=== PATIENT | male | born 1940 | race Caucasian/White ===

== ENCOUNTER → 2021-01-29 | Outpatient (CLI) | payer OTHER ==
--- NOTE | 2021-01-31 21:39 | PE ---
EXAMINATION TYPE: PET CT fusion skull to thigh DATE OF EXAM: 01/29/2021 COMPARISON: NONE at this institution HISTORY: Solitary pulmonary nodule. Abnormal outside CT. 1.8 x 1.1 cm right apical lung nodule TECHNIQUE: Following the intravenous administration of 11.67 mCi of F-18 FDG, whole body images are performed from the skull base to the midthigh. Images are reviewed on the computer in the coronal, a xial, and sagittal planes. Reconstructed rotating images are created on independent workstation and reviewed on the computer. A localization and attenuation correction CT is performed in conjunction with the PET scan. Glucose level equals 99 SCAN: Initial Scan FINDINGS: SKULL BASE AND NECK: No suspicious hypermetabolic uptake. CHEST, MEDIASTINUM, AND HILAR REGION: Corresponding to outside report there is posterior lateral righ t upper lung 1.8 x 1.1 cm oval nodule axial image 73, this is ametabolic. Additional smaller peripher al nodules in the medial right upper lung axial image 74 show no suspicious hypermetabolic uptake. Ba ckground mild to moderate emphysematous change with peripheral fibrosis greater in the upper lobes. N o suspicious hypermetabolic uptake. ABDOMEN AND PELVIS: No suspicious hypermetabolic uptake. No adrenal masses. OSSEOUS STRUCTURES: No suspicious hypermetabolic uptake. OTHER CT: Underlying scoliosis in the lumbar spine. Moderate to severe calcified plaque bilateral carotid bulb level. Severe three-vessel coronary artery calcification. Enlarged prostate consistent with BPH. Moderate to severe wall thickening in the blad paco presumed related to outlet obstruction from BPH. IMPRESSION: No suspicious hypermetabolic uptake to suggest malignancy in the right upper lung pulmona ry nodule.
== END | disposition home or self-care (01) ==
LOC: RADPETMAIN 12:24
PROVIDERS: ATTEND Physician Assistant
DX: R91.1 Solitary pulmonary nodule (principal)
CPT/HCPCS: 78815; A9552

== ENCOUNTER → 2022-08-02 | Outpatient (CLI) | payer OTHER ==
--- NOTE | 2022-08-02 13:31 | CT ---
EXAMINATION TYPE: CT angio neck DATE OF EXAM: 08/02/2022 HISTORY: left carotid stenosis COMPARISON: Carotid ultrasound. 25/12/2022 CT DLP: 556.7 mGycm. Automated Exposure Control for Dose Reduction was Utilized. TECHNIQUE: CTA scan of the head and neck is performed without and with IV Contrast, patient injected with 65 mL of Isovue 370, axial images are obtained, coronal and sagittal reformatted images are rev iewed. 3D reconstructed images are created on an independent workstation and reviewed. FINDINGS: Carotid/Vascular Structures: Mild to moderate mixed Peripheral plaque in the aortic arch is seen. The re is fibrotic vessel origin from the aortic arch with direct origin of the right brachiocephalic art sun and right common carotid artery and left common carotid artery and left vertebral artery and left subclavian artery. There is significant stenosis due to noncalcified plaque in the right brachioceph alic artery seen best image 48 series 9 with diameter narrowed to 1.7 mm. Some irregularity and narro wing along the remainder of the right brachiocephalic artery which measures up to 9.4 mm axial image 70 just distal to the stenosis. Findings correlate with significant stenosis on coronal image 14 seri es 13. Left vertebral artery has [id number] mixed plaque at its origin causing stenosis appro aching near 50%. Left subclavian artery shows moderate peripheral noncalcified plaque without signifi cant stenosis. There is also severe eccentric noncalcified plaque at proximal to mid clavicular level causing stenosis over 50% coronal image 16 measured around 66%. Bilateral common carotid arteries show mild to moderate noncalcified plaque at origin of the left com mon carotid artery. No significant stenosis along the common carotid arteries bilaterally. There is m oderate to severe mixed plaque in right carotid bulb extending into the proximal internal and externa l carotid arteries without significant stenosis on the right. Similar findings are noted on the left without significant stenosis. Patent external carotid arteries with significant stenosis at origin of the left external carotid artery. Remainder of the internal carotid arteries show mild calcified amber que distally. The right vertebral artery originates from the right brachiocephalic artery with small caliber and po or flow along its entire course. Left vertebral artery is dominant and patent to the basilar junction . No significant stenosis. Other: Mild to moderate emphysematous change with moderate bilateral pleural/parenchymal scarring. Sl ightly more prominent nodularity on the right is seen coronal image 54. This is however stable from P ET CT January 29, 2021. Nodular scarring is suspected. Reversal of normal cervical curvature with moderate to severe narrowing C4-C5 and C5-C6 levels. Moder ate disc space narrowing C6-C7 level is seen. Grade 1 anterolisthesis C2 on C3 and C3 on C4. IMPRESSION: 1. Moderate to severe bilateral carotid bulb plaque without hemodynamically significant stenosis in e ither internal carotid artery. Incidental note made of significant stenosis at origin of the left ext ernal carotid artery is confirmed. 2. Left subclavian and right brachiocephalic artery significant stenosis with most prominent finding in the right brachiocephalic artery. Direct origin of the right common carotid artery from the arch i s noted. The right vertebral artery has poor flow and is nondominant. Correlate for right upper extre mity radiculopathy type symptoms. NASCET criteria was used in interpretation of this exam?
== END | disposition home or self-care (01) ==
LOC: RADCTMAIN 11:20
PROVIDERS: ATTEND Surgery
DX: I65.23 Occlusion and stenosis of bilateral carotid arteries (principal)
CPT/HCPCS: 82565; 84520; 70498; Q9967

== ENCOUNTER 2022-08-25 07:17 | Inpatient (IN) | payer OTHER ==
[~2022-08-25 07:17] MED LIST: ALPRAZolam 0.25 MG TAB PO PRN; ALPRAZolam 0.5 MG TAB PO PRN; ASPIRIN 81 MG PO PRN; CLOPIDOGREL 75 MG TAB PO PRN; NITROGLYCERIN SL TABS 0.4 MG TAB SUBLINGUAL PRN; ceFAZolin 2 GM in SODIUM CHLORIDE 0.9% 500 ML 500 ML IRRIGATION PRN
[2022-08-25] MEDS ORDERED: SODIUM CHLORIDE 0.9% 1,000 ML IV ONE (07:30)
[2022-08-25 07:56] LABS: Basophils # (A) 0.1 k/uL (0-0.2); Basophils % (A) 1 %; Eosinophils # (A) 0.2 k/uL (0-0.7); Eosinophils % (A) 2 %; HCT 37.3 % (39.0-53.0); HGB 12.3 gm/dL (13.0-17.5); Lymphocytes # (A) 2.6 k/uL (1.0-4.8); Lymphocytes % (A) 29 %; MCH 32.5 pg (25.0-35.0); Macrocytosis Slight; Monocytes # (A) 0.4 k/uL (0-1.0); Monocytes % (A) 4 %; Neutrophils # (A) 5.5 k/uL (1.3-7.7); Neutrophils % (A) 62 %; Poikilocytosis Moderate; RBC 3.78 m/uL (4.30-5.90); RDW 15.1 % (11.5-15.5); WBC 8.9 k/uL (3.8-10.6)
[2022-08-25 08:05] LABS: Calcium 9.2 mg/dL (8.4-10.2); Potassium 4.6 mmol/L (3.5-5.1)
[2022-08-25 08:23] LABS: MCV 98.7 fL (80.0-100.0); Platelet Count 333 k/uL (150-450)
[2022-08-25] MEDS ORDERED: LIDOCAINE 1% INJ 10MG/ML (20 ML MDV) ONE (08:53)
[2022-08-25] MEDS ORDERED: RX INFO: IV CONTRAST WAS GIVEN 1 EACH MISC MISCELLANE PRN (09:00)
[2022-08-25] MEDS ORDERED: GLYCOPYRROLATE 0.2 MG/ML 2 ML VIAL ONE (09:02)
[2022-08-25] MEDS ORDERED: HEPARIN SODIUM,PORCINE 10,000 UNIT/ML 1 ML VIAL ONE (09:02)
[2022-08-25] MEDS ORDERED: fentaNYL (PF) 50 MCG/ML 2 ML AMP ONE (09:02)
[2022-08-25] MEDS ORDERED: PROTAMINE SULFATE 10 MG/ML 5 ML VIAL IV ONE (09:02)
[2022-08-25] MEDS ORDERED: LIDOCAINE 1% INJ 10MG/ML (30 ML VIAL-PF) SQ ONE (09:53)
[2022-08-25] MEDS ORDERED: GELATIN SPONGE,ABSORB (LARGE) 1 EACH SPONGE TOPICAL ONE (10:33)
[2022-08-25] MEDS ORDERED: THROMBIN (BOVINE) 5,000 UNIT VIAL TOPICAL ONE (10:34)
[2022-08-25] MEDS ORDERED: IOPAMIDOL-370 100ML BTL INJ ONE (10:40)
[2022-08-25] MEDS ORDERED: IV FLUID CONTINUATION 1,000 ML IV ONE ×2 (11:01)
--- NOTE | 2022-08-25 11:33 | P.OP ---
Date of Procedure: 08/25/22 Description of Procedure: Preoperative diagnosis: Symptomatic left internal carotid artery stenosis Postoperative diagnosis: Same Procedure: LeftTranscarotid artery revascularization with stenting. Right common femoral vein central venous catheter placement under ultrasound guidance Surgeon: Suzanna Parrish DO Fire Observer: Magda Anesthesia: Conscious sedation Complications: None Condition: Stable Flow reversal time: 7 minutes Lesion length: 1centimeter Indication for procedure: Patient is an 82-year-old male with symptomatic left internal carotid artery stenosis who had word finding difficulties and was found to have high-grade stenosis. Risks and benefits of going forward with intervention were discussed. He seemingly understood and wished to proceed. He has been taking his Plavix and aspirin as well as statin for the past few weeks. Operative narrative: After written and informed consent was obtained the patient all risks benefits and competitions were described the patient was brought to the [facility] and laid in a supine position. The area of the neck and groins were prepped and draped in usual sterile fashion after appropriate anesthetic was performed per the anesthesiologist. A timeout was performed in normal fashion and antibiotics were administered prior to incision. Utilizing ultrasound the left common carotid artery was located and a transverse incision was created overlying this area after proper anesthetization. Dissection was carried between the sternocleidomastoid musculature down to the carotid sheath. The sheath was then incised and the common carotid artery was located and dissected free in a circumferential manner and controlled with umbilical tape. Once controlled, attention was placed down to the common femoral vein and utilizing ultrasound the vein was cannulated and the 8-[place] sheath was placed in normal fashion. Attention was then placed back to the carotid artery and the patient was administered heparin and followed with ACTs and redosed as needed for ACT above 250. A pursestring suture was then placed at the common carotid artery with 5-0 Prolene and utilizing a micropuncture needle the common carotid artery was accessed and wire was placed followed by a 4-[place] sheath. Carotid angiogram was then obtained demonstrating significant stenosis in the internal carotid artery. Stiff wire was then placed followed by the 8 [place] sheath. Flow reversal was then established with the enroute GATHERING MACHINE FEEDER system after patient's blood pressure was increased to above 160, heart rate above 60 and ACT above 250. 014 wire was then placed across the lesion followed by a 6 x 30 mm Rangel balloon and balloon angioplasty was performed followed by an 9 x 30 mm [place] stent. Postdilatation was not performed and final angiogram was obtained demonstrating complete resolution of the stenosis. All guidewires and catheters were removed and the sheath was removed and the arteriotomy was secured with the previously placed pursestring suture. Hemostasis was assured with Gelfoam and thrombin. The area was irrigated and closed. The platysma was closed with 3-0 Vicryl. The skin was closed with running 4-0 Monocryl in subcuticular fashionThe femoral sheath was also removed and pressure was held for hemostasis. The patient all procedure well and was moving all extremities and following commands. The patient was then sent to PACU for recovery.
[2022-08-25] MEDS ORDERED: ATROPINE SULFATE 0.1 MG/ML 10ML SYRINGE IV PRN (11:34)
[2022-08-25] MEDS ORDERED: MAG HYDROX/AL HYDROX/SIMETH 30 ML CUP PO PRN (11:34)
[2022-08-25] MEDS: SODIUM CHLORIDE 0.9% 1,000 ML in EMPTY BAG 1 BAG IV ONE ×2 (11:45→16:15)
[2022-08-25] MEDS: PHENYLEPHRINE 40 MG in SODIUM CHLORIDE 0.9% 250 ML IV SCH ×2 (12:47→13:15)
[2022-08-25] MEDS ORDERED: HYDROmorphone 0.5 MG/0.5 ML SYRINGE IVP ONE (13:34)
--- NOTE | 2022-08-25 16:00 | P.CONS ---
History of Present Illness - Reason for Consult Consult date: 08/25/22 - History of Present Illness Patient is a 82-year-old male with history of CVA, recent episode of aphasia and anomia, bilateral carotid atherosclerotic disease, dyslipidemia, hypertension presenting for left trans-carotid artery revascularization with stenting. [facility] has been consulted for medical management. He denies any chest pain, shortness of breath, abdominal pain, nausea, vomiting, diarrhea, constipation, or urinary complaints. He does complain about loss of appetite for the last 2 years since his . He claims that most of his meals are precooked. He currently lives alone at home. Patient currently is afebrile, pulse 63, respiratory rate 14, blood pressure 12 7/55, saturating around percent on room air. Laboratory workup shows hemoglobin 12.3, sodium 139, creatinine 1.72. Pertinent positives and negatives as discussed in HPI, a complete review of systems was performed and all other systems are negative. Patient seen and examined at bedside. Vital signs reviewed General: nontoxic, no distress, appears at stated age, thin-appearing Derm: warm, dry Head: atraumatic, normocephalic, symmetric Eyes: EOMI, no lid lag, anicteric sclera, pupils equal round reactive to light ENT: Nose and ears atraumatic Neck: No thyromegaly, supple Mouth: no lip lesion, mucus membranes moist Cardiovascular: S1S2 reg, no murmur, no edema Lungs: clear to auscultation bilateral, no rhonchi, no rales, no wheeze, no accessory muscle use Abdominal: soft, nontender to palpation, no guarding, no appreciable organomegaly Ext: no gross muscle atrophy, muscle strength muscle strength 5 out of 5 in all 4 extremities, no contractures Neuro: CN II-XII grossly intact Psych: Alert, oriented, appropriate affect Assessment/Plan: Severe protein calorie malnutrition Dysthymia Acute kidney injury, nonoliguric Status post left trans-coronary artery revascularization with stenting History of CVA Bilateral carotid atherosclerotic disease Dyslipidemia Hypertension -Mirtazapine 15 mg 1 -Dietary consult -Hold lisinopril given acute kidney injury -Monitor urine output, repeat BMP tomorrow -Continue aspirin 81 mg, Plavix 75 mg daily -On atorvastatin 80 mg -DVT prophylaxis per vascular surgery Thank you for allowing us to participate in the care of this pleasant patient. Do not hesitate to contact us with questions. Someone can be reached from the [facility] hospitalist group all hours of the day at [phone] or via [employer].. Past Medical History Past Medical History: CVA/TIA, Hypertension History of Any Multi-Drug Resistant Organisms: None Reported Past Surgical History: No Surgical Hx Reported Past Anesthesia/Blood Transfusion Reactions: No Reported Reaction Additional Past Anesthesia/Blood Transfusion Reaction / Comm: PT STATES HE HAS NEVER HAD ANESTH. Past Psychological History: Depression Additional Psychological History / Comment(s): RELATED TO 'S PASSING Smoking Status: Current every day smoker Past Alcohol Use History: None Reported Past Drug Use History: None Reported - Past Family History Mother Family Medical History: No Reported History Father Additional Family Medical History / Comment(s): FATAL DE IN HIS 50'S Medications and Allergies Home Medications Medication Instructions Recorded Confirmed Type lisinopriL [Zestril] 5 mg PO DAILY 07/05/22 08/25/22 History Aspirin 81 mg PO DAILY #30 tab 07/07/22 08/25/22 Rx Atorvastatin [Lipitor] 80 mg PO HS #30 tab 07/07/22 08/25/22 Rx Clopidogrel [Plavix] 75 mg PO DAILY #30 tab 07/07/22 08/25/22 Rx Allergies Allergy/AdvReac Type Severity Reaction Status Date / Time Penicillins Allergy Anaphylaxis Verified 08/25/22 07:42 Physical Exam Vitals: Vital Signs Temp Pulse Pulse Pulse Resp BP BP 08/25/22 15:00 59 L 14 126/55 08/25/22 14:30 59 L 16 148/65 08/25/22 14:00 63 14 127/55 08/25/22 13:30 56 L 16 144/51 08/25/22 13:15 65 16 145/69 08/25/22 13:00 63 16 132/64 08/25/22 12:45 61 16 125/62 08/25/22 12:30 60 16 117/58 08/25/22 12:15 61 14 99/57 08/25/22 12:00 60 14 97/55 08/25/22 11:45 58 L 14 106/56 08/25/22 11:30 59 L 16 100/52 08/25/22 11:15 62 14 109/57 08/25/22 10:59 96.9 F L 58 L 16 106/37 08/25/22 07:54 97.8 F 59 L 16 153/62 08/25/22 07:53 97.8 F 59 L 16 153/62 BP Pulse Ox 08/25/22 15:00 138/50 100 08/25/22 14:30 154/54 100 08/25/22 14:00 143/50 100 08/25/22 13:30 154/60 100 08/25/22 13:15 160/68 100 08/25/22 13:00 148/56 100 08/25/22 12:45 148/56 100 08/25/22 12:30 124/46 100 08/25/22 12:15 110/50 100 08/25/22 12:00 113/56 100 08/25/22 11:45 118/45 100 08/25/22 11:30 120/46 100 08/25/22 11:15 114/45 100 08/25/22 10:59 100 08/25/22 07:54 100 08/25/22 07:53 100 Intake and Output 08/25/22 08/25/22 08/25/22 06:59 14:59 22:59 Intake Total 1107.5 Output Total 120 Balance 987.5 Intake: IV 1107.5 Output: Urine 120 Other: Weight 54.2 kg Results CBC & Chem 7: 08/25/22 07:30 08/25/22 07:30 Labs: Abnormal Lab Results - Last 24 Hours (Table) 08/25/22 08/25/22 Range/Units 07:30 07:30 RBC 3.78 L (4.30-5.90) m/uL Hgb 12.3 L (13.0-17.5) gm/dL Hct 37.3 L (39.0-53.0) % Carbon Dioxide 21 L (22-30) mmol/L Creatinine 1.72 H (0.66-1.25) mg/dL Glucose 109 H (74-99) mg/dL
--- NOTE | 2022-08-25 16:52 | IR ---
EXAMINATION TYPE: IR stent intravas non coronary DATE OF EXAM: 08/25/2022 CLINICAL HISTORY: Carotid stenosis. TECHNIQUE: Fluoroscopy. COMPARISON: CTA neck August 02, 2022. FINDINGS: Fluoroscopic guidance was provided during carotid stent insertion procedure performed by Feliz Parrish. A total of 2 minutes 6 seconds of fluoroscopic time was utilized during the procedure and 36 spot images was acquired. Please refer to procedure note for further details. IMPRESSION: As Above. TOTAL DAP = 1.95 Gy x cm2
[2022-08-25] MEDS: DEXMEDETOMIDINE/0.9% NACL(PMX) 400 MCG in EMPTY BAG 1 BAG IV SCH (17:03)
[2022-08-25] MEDS: ATORVASTATIN 80 MG TAB PO SCH (20:00)
[2022-08-25] MEDS: MIRTAZAPINE 15 MG TAB PO SCH (20:00)
[2022-08-25] MEDS ORDERED: ATORVASTATIN 40 MG TAB PO SCH (21:00)
[2022-08-26] MEDS: DEXMEDETOMIDINE/0.9% NACL(PMX) 400 MCG in EMPTY BAG 1 BAG IV SCH (07:42)
[2022-08-26] MEDS: CLOPIDOGREL 75 MG TAB PO SCH (08:33)
[2022-08-26] MEDS: ASPIRIN 81 MG PO SCH (08:33)
[2022-08-26] MEDS ORDERED: LIDOCAINE 2% INJ 20 MG/ML (20 ML MDV) SQ STA (08:47)
[2022-08-26] MEDS ORDERED: LIDOCAINE 2% (PF) 20 MG/ML 5 ML VIAL ONE (08:58)
[2022-08-26] MEDS: TAMSULOSIN 0.4 MG CAP.ER.24H PO SCH (08:59)
[2022-08-26 09:57] LABS: Basophils % (A) 0 %; Eosinophils # (A) 0.1 k/uL (0-0.7); Eosinophils % (A) 1 %; HCT 27.7 % (39.0-53.0); Hypochromasia Slight; Lymphocytes # (A) 0.9 k/uL (1.0-4.8); Lymphocytes % (A) 10 %; MCH 33.7 pg (25.0-35.0); MCHC 33.6 g/dL (31.0-37.0); MCV 100.2 fL (80.0-100.0); Macrocytosis Slight; Mean Platelet Volume 7.1; Monocytes # (A) 0.3 k/uL (0-1.0); Monocytes % (A) 4 %; Neutrophils # (A) 7.6 k/uL (1.3-7.7); Neutrophils % (A) 85 %; Platelet Count 197 k/uL (150-450); Poikilocytosis Moderate; RBC 2.76 m/uL (4.30-5.90)
[2022-08-26 09:59] LABS: Calcium 8.3 mg/dL (8.4-10.2); Potassium 4.5 mmol/L (3.5-5.1)
[2022-08-26 10:04] LABS: HGB 9.3 gm/dL (13.0-17.5)
[2022-08-26] MEDS: PHENYLEPHRINE 40 MG in SODIUM CHLORIDE 0.9% 250 ML IV SCH (10:37)
--- NOTE | 2022-08-26 11:06 | P.PN ---
Subjective Progress Note Date: 08/26/22 Subjective: Patient seen and examined at bedside. No acute events overnight. He did have a little bit of bloody oozing from the surgical site. He denies any chest pain, shortness of breath, abdominal pain, nausea, vomiting, diarrhea, constipation, or urinary complaints. He claims that he got out of bed and walked. Pertinent positives and negatives as discussed above, a complete review of systems was performed and all other systems are negative. Vitals Signs Reviewed. General: nontoxic, no distress, appears at stated age, thin-appearing Derm: warm, dry, left neck surgical site covered in dressing, noted bleeding Head: atraumatic, normocephalic, symmetric Eyes: EOMI, no lid lag, anicteric sclera, pupils equal round reactive to light ENT: Nose and ears atraumatic Neck: No thyromegaly, supple Mouth: no lip lesion, mucus membranes moist Cardiovascular: S1S2 reg, no murmur, no edema Lungs: clear to auscultation bilateral, no rhonchi, no rales, no wheeze, no accessory muscle use Abdominal: soft, nontender to palpation, no guarding, no appreciable organomegaly Ext: no gross muscle atrophy, muscle strength muscle strength 5 out of 5 in all 4 extremities, no contractures Neuro: CN II-XII grossly intact Psych: Alert, oriented, appropriate affect Data Reviewed Today: Pertinent Labs: WBC 9, hemoglobin 9.3, platelet 197, sodium 138, chloride 109, creatinine 1.55 Assessment and Plan: Severe protein calorie malnutrition Dysthymia Acute kidney injury, nonoliguric, improving Status post left trans-coronary artery revascularization with stenting Acute blood loss anemia, expected outcome of surgery History of CVA Bilateral carotid atherosclerotic disease Dyslipidemia Hypertension -Mirtazapine 15 mg at night -Dietary consult -Hold lisinopril given acute kidney injury, which is improving -Blood pressure normal this morning, continue to hold lisinopril, likely restart at discharge -Monitor urine output, repeat BMP tomorrow -Continue aspirin 81 mg, Plavix 75 mg daily -On atorvastatin 80 mg -DVT prophylaxis per vascular surgery -Repeat CBC tomorrow -Vascular surgery likely discharge patient today or tomorrow Thank you for allowing us to participate in the care of this pleasant patient. Do not hesitate to contact us with questions. Someone can be reached from the [facility] hospitalist group all hours of the day at [phone] or via perfect serve. Objective - Vital Signs Vital signs: Vital Signs Temp 98.4 F 08/26/22 08:39 Pulse 91 08/26/22 08:39 Resp 18 08/26/22 08:39 BP 115/56 08/26/22 08:39 Pulse Ox 99 08/26/22 08:39 FiO2 Intake & Output 08/25/22 08/26/22 08/26/22 18:59 06:59 18:59 Intake Total 1407.5 340 128 Output Total 1195 525 125 Balance 212.5 -185 3 Weight 54.2 kg Intake: IV 1407.5 10 Invasive Line 1 5 Invasive Line 2 5 Oral 340 118 Output: Urine 1195 525 125 Straight 525 Other: # Voids 1 - Labs CBC & Chem 7: 08/26/22 09:11 08/26/22 09:11 Labs: Abnormal Lab Results - Last 24 Hours (Table) 08/26/22 08/26/22 Range/Units 09:11 09:11 RBC 2.76 L (4.30-5.90) m/uL Hgb 9.3 L D (13.0-17.5) gm/dL Hct 27.7 L (39.0-53.0) % MCV 100.2 H (80.0-100.0) fL Lymphocytes # 0.9 L (1.0-4.8) k/uL Chloride 109 H (98-107) mmol/L Creatinine 1.55 H (0.66-1.25) mg/dL Glucose 101 H (74-99) mg/dL Calcium 8.3 L (8.4-10.2) mg/dL
--- NOTE | 2022-08-26 12:11 | P.PN ---
Subjective Progress Note Date: 08/26/22 Principal diagnosis: Carotid stenosis status post TCAR 82-year-old male who is postop day #1 for left trans-carotid artery revascularization with stenting. Patient had some bleeding from his neck incision site through the night. The patient denies any focal deficits. Parrish catheter was discontinued and patient had some urinary retention. He was straight cathed for 500 mL of urine. He denies any abdominal pain, no nausea or vomiting. Objective - Vital Signs Vital signs: Vital Signs Temp 98.9 F 08/26/22 11:23 Pulse 73 08/26/22 11:23 Resp 16 08/26/22 11:23 BP 130/63 08/26/22 11:23 Pulse Ox 99 08/26/22 11:23 FiO2 Intake & Output 08/25/22 08/26/22 08/26/22 18:59 06:59 18:59 Intake Total 1407.5 340 128 Output Total 1195 525 125 Balance 212.5 -185 3 Weight 54.2 kg Intake: IV 1407.5 10 Invasive Line 1 5 Invasive Line 2 5 Oral 340 118 Output: Urine 1195 525 125 Straight 525 Other: # Voids 1 - Exam General appearance: The patient is alert, oriented, appears in no acute distress. HET: Head is normocephalic and atraumatic. Pupils are equal and reactive. Neck: Supple. Trachea midline. Left-sided neck surgical incision site with small area not approximated and oozing. Heart: Regular. Lungs: Equal expansion, normal respiratory effort. Abdomen: Soft, nontender, nondistended. Extremities: Normal skin color and turgor. Right groin access site well approx imated, no bleeding, no hematoma noted. Neurological: No focal deficits. Strength and sensation are grossly intact. - Labs CBC & Chem 7: 08/26/22 09:11 08/26/22 09:11 Labs: Abnormal Lab Results - Last 24 Hours (Table) 08/26/22 08/26/22 Range/Units 09:11 09:11 RBC 2.76 L (4.30-5.90) m/uL Hgb 9.3 L D (13.0-17.5) gm/dL Hct 27.7 L (39.0-53.0) % MCV 100.2 H (80.0-100.0) fL Lymphocytes # 0.9 L (1.0-4.8) k/uL Chloride 109 H (98-107) mmol/L Creatinine 1.55 H (0.66-1.25) mg/dL Glucose 101 H (74-99) mg/dL Calcium 8.3 L (8.4-10.2) mg/dL Assessment and Plan Assessment: 1. Symptomatic left internal carotid artery stenosis status post left trans- carotid artery revascularization with stenting 2. TIA/CVA 3. Acute blood loss anemia 4. Hypertension 5. History of tobacco dependence Plan: 1. Dr. Parrish to suture incision site 2. Start Flomax 3. Encourage ambulation 4. Continue Plavix and aspirin 5. CBC in the morning 6. Bladder scan as needed and straight cath as needed notify attending if patient unable to void 7. Anticipate discharge in the next 24 hours The impression and plan of care has been dictated as directed. Dr. Parrish I performed a history and examination of this patient, discussed the same with the dictator. I agree with the dictator's note ,documented as a scribe. Any additional findings or plans will be noted.
[2022-08-26 14:15] VITALS: BMI 15.7
[2022-08-26] MEDS: ATORVASTATIN 80 MG TAB PO SCH (20:17)
[2022-08-26] MEDS: MIRTAZAPINE 15 MG TAB PO SCH (20:17)
[2022-08-26 20:19] VITALS: RESP 18; TEMP 98.7
[2022-08-27 08:11] LABS: HGB 8.6 gm/dL (13.0-17.5); MCH 34.2 pg (25.0-35.0); MCHC 34.4 g/dL (31.0-37.0); MCV 99.6 fL (80.0-100.0); Macrocytosis Slight; Mean Platelet Volume 7.6; Platelet Count 180 k/uL (150-450); Poikilocytosis Moderate; RBC 2.51 m/uL (4.30-5.90); WBC 6.3 k/uL (3.8-10.6)
[2022-08-27] MEDS: CLOPIDOGREL 75 MG TAB PO SCH (08:27)
[2022-08-27] MEDS: TAMSULOSIN 0.4 MG CAP.ER.24H PO SCH (08:27)
[2022-08-27] MEDS: ASPIRIN 81 MG PO SCH (08:27)
[2022-08-27 08:32] VITALS: BP 137/63; PULSE 83
--- NOTE | 2022-08-27 09:09 | P.PN ---
Subjective Progress Note Date: 08/27/22 Principal diagnosis: Carotid stenosis. Postop day #2. Objective - Vital Signs Vital signs: Vital Signs Temp 98.7 F 08/27/22 08:31 Pulse 83 08/27/22 08:31 Resp 18 08/27/22 08:31 BP 137/63 08/27/22 08:31 Pulse Ox 100 08/27/22 08:31 FiO2 Intake & Output 08/26/22 08/27/22 08/27/22 18:59 06:59 18:59 Intake Total 364 118 10 Output Total 325 150 Balance 39 -32 10 Weight 54.2 kg Intake: IV 10 10 Invasive Line 1 5 5 Invasive Line 2 5 5 Oral 354 118 Output: Urine 325 150 Other: # Voids 1 - Exam Patient is awake alert. There is no recurrent drainage from the wound. Cranial nerves II through XII are grossly intact. - Labs CBC & Chem 7: 08/27/22 07:52 08/26/22 09:11 Labs: Abnormal Lab Results - Last 24 Hours (Table) 08/26/22 08/26/22 08/27/22 Range/Units 09:11 09:11 07:52 RBC 2.76 L 2.51 L (4.30-5.90) m/uL Hgb 9.3 L D 8.6 L (13.0-17.5) gm/dL Hct 27.7 L 25.0 L (39.0-53.0) % MCV 100.2 H (80.0-100.0) fL Lymphocytes # 0.9 L (1.0-4.8) k/uL Chloride 109 H (98-107) mmol/L Creatinine 1.55 H (0.66-1.25) mg/dL Glucose 101 H (74-99) mg/dL Calcium 8.3 L (8.4-10.2) mg/dL Assessment and Plan Assessment: 1. Postop day #2 status post left carotid intervention. 2. Surgically stable. Plan: Discharge. Outpatient follow-up with Dr. Parrish. Time with Patient: Less than 30
--- NOTE | 2022-08-27 09:13 | P.DS ---
Providers Date of admission: 08/25/22 07:17 Attending physician: Suzanna Parrish DO Consults: 08/25/22 11:35 Consult Physician Routine Consulting Provider: Giana Robert Consult Reason/Comments: med mgment Do you want consulting provider notified?: Yes Primary care physician: [facility] Hospital Course: Patient underwent trans-carotid arterial revascularization without incident. Postoperatively the patient did experience some small amount of bleeding which required suturing of the skin. This did control the bleeding. The remainder of his hospital course was unremarkable. Patient Condition at Discharge: Good Plan - Discharge Summary Discharge Rx Participant: Yes New Discharge Prescriptions: Continue Aspirin 81 mg PO DAILY #30 tab Atorvastatin [Lipitor] 80 mg PO HS #30 tab Clopidogrel [Plavix] 75 mg PO DAILY #30 tab lisinopriL [Zestril] 5 mg PO DAILY Discharge Medication List lisinopriL [Zestril] 5 mg PO DAILY 07/05/22 [History] Aspirin 81 mg PO DAILY #30 tab 07/07/22 [Rx] Atorvastatin [Lipitor] 80 mg PO HS #30 tab 07/07/22 [Rx] Clopidogrel [Plavix] 75 mg PO DAILY #30 tab 07/07/22 [Rx] Follow up Appointment(s)/Referral(s): [facility], [NON-STAFF] - Activity/Diet/Wound Care/Special Instructions: No strenuous activity or heavy lifting greater than 10 pounds. May shower tomorrow but no tub bathing or soaking. Watch incision site for infection including redness, drainage, or temperature greater than 100.4. If you notice he symptoms please call office Discharge Disposition: HOME WITH HOME HEALTH SERVICES Plan of Treatment: 1: Ambulate ad yoshi. 2: May shower directly over wound. 3: Follow-up with Dr. Parrish in 10-14 days
--- NOTE | 2022-08-27 10:31 | P.PN ---
Subjective Progress Note Date: 08/27/22 Subjective: Patient seen and examined at bedside. No acute events overnight. He denies any chest pain, shortness of breath, abdominal pain, nausea, vomiting, diarrhea, constipation, or urinary complaints. He claims that he got out of bed and walked. Pertinent positives and negatives as discussed above, a complete review of systems was performed and all other systems are negative. Vitals Signs Reviewed. General: nontoxic, no distress, appears at stated age, thin-appearing Derm: warm, dry, left neck surgical site no active bleeding Head: atraumatic, normocephalic, symmetric Eyes: EOMI, no lid lag, anicteric sclera, pupils equal round reactive to light ENT: Nose and ears atraumatic Neck: No thyromegaly, supple Mouth: no lip lesion, mucus membranes moist Cardiovascular: S1S2 reg, no murmur, no edema Lungs: clear to auscultation bilateral, no rhonchi, no rales, no wheeze, no acce ssory muscle use Abdominal: soft, nontender to palpation, no guarding, no appreciable organomegaly Ext: no gross muscle atrophy, muscle strength muscle strength 5 out of 5 in all 4 extremities, no contractures Neuro: CN II-XII grossly intact Psych: Alert, oriented, appropriate affect Data Reviewed Today: Pertinent Labs: WBC 6.3, hemoglobin 8.6 Assessment and Plan: Severe protein calorie malnutrition Dysthymia Acute kidney injury, nonoliguric, improving Status post left trans-coronary artery revascularization with stenting Acute blood loss anemia, expected outcome of surgery History of CVA Bilateral carotid atherosclerotic disease Dyslipidemia Hypertension BPH -Mirtazapine 15 mg at night -Ensure 3 times a day -Acute kidney injury is improving, continue lisinopril at discharge -Continue aspirin 81 mg, Plavix 75 mg daily -On atorvastatin 80 mg -DVT prophylaxis per vascular surgery -On Flomax 0.4 mg Patient is medically optimized for discharge home. Thank you for allowing us to participate in the care of this pleasant patient. Do not hesitate to contact us with questions. Someone can be reached from the [facility] hospitalist group all hours of the day at [phone] or via perfect serve. Objective - Vital Signs Vital signs: Vital Signs Temp 98.7 F 08/27/22 08:31 Pulse 83 08/27/22 08:31 Resp 18 08/27/22 08:31 BP 137/63 08/27/22 08:31 Pulse Ox 100 08/27/22 08:31 FiO2 Intake & Output 08/26/22 08/27/22 08/27/22 18:59 06:59 18:59 Intake Total 364 118 20 Output Total 325 150 Balance 39 -32 20 Weight 54.2 kg Intake: IV 10 20 Invasive Line 1 5 10 Invasive Line 2 5 10 Oral 354 118 Output: Urine 325 150 Other: # Voids 1 - Labs CBC & Chem 7: 08/27/22 07:52 08/26/22 09:11 Labs: Abnormal Lab Results - Last 24 Hours (Table) 08/27/22 Range/Units 07:52 RBC 2.51 L (4.30-5.90) m/uL Hgb 8.6 L (13.0-17.5) gm/dL Hct 25.0 L (39.0-53.0) %
== END 2022-08-27 12:19 | disposition home health service (06) | DRG 34 ==
LOC: 2ORMAIN 07:17 → 3SCARD 16:06
PROVIDERS: ATTEND Surgery
PROC: 037L3DZ Dilation of Left Internal Carotid Artery with Intraluminal Device, Percutaneous Approach (ICD-10-PCS; principal; 2022-08-25 09:00)
DX: I65.23 Occlusion and stenosis of bilateral carotid arteries (principal); E43 Unspecified severe protein-calorie malnutrition; Z68.1 Body mass index [BMI] 19.9 or less, adult; N17.9 Acute kidney failure, unspecified; D62 Acute posthemorrhagic anemia; I97.618 Postprocedural hemorrhage of a circulatory system organ or structure following other circulatory system procedure; I77.1 Stricture of artery; F34.1 Dysthymic disorder; I10 Essential (primary) hypertension; E78.5 Hyperlipidemia, unspecified; I69.320 Aphasia following cerebral infarction; N40.1 Benign prostatic hyperplasia with lower urinary tract symptoms; R33.8 Other retention of urine; F17.210 Nicotine dependence, cigarettes, uncomplicated; Z79.82 Long term (current) use of aspirin; Z79.02 Long term (current) use of antithrombotics/antiplatelets; Z79.899 Other long term (current) drug therapy; Z71.3 Dietary counseling and surveillance; Z88.0 Allergy status to penicillin; Y83.8 Other surgical procedures as the cause of abnormal reaction of the patient, or of later complication, without mention of misadventure at the time of the procedure; Y92.230 Patient room in hospital as the place of occurrence of the external cause
CPT/HCPCS: 37215; 80048; 85025; 85027; 86850; 86900; 86901